=== PATIENT | female | born 1980 | race Caucasian/White ===

== ENCOUNTER → 2016-06-01 | Outpatient (CLI) | payer BC ==
--- NOTE | 2016-06-01 17:53 | XR ---
EXAMINATION TYPE: XR lumbosacral spine min 4V DATE OF EXAM: 06/01/2016 4:30 PM COMPARISON: NONE HISTORY: Back pain TECHNIQUE: 5 views FINDINGS: Lumbar vertebra have normal spacing and alignment. Posterior elements are intact. There is no compression fracture. Sacroiliac joints are normal. IMPRESSION: Normal lumbar spine.
== END | disposition home or self-care (01) ==
LOC: RADXRMAIN 16:16
PROVIDERS: ATTEND Nurse Practitioner Primary Care
DX: M54.42 Lumbago with sciatica, left side (principal)
CPT/HCPCS: 72110